=== PATIENT | female | born 1955 | race Caucasian/White ===

== ENCOUNTER → 2017-06-03 | Outpatient (CLI) | END | disposition home or self-care (01) | DX: M70.61 Trochanteric bursitis, right hip (principal); R10.30 Lower abdominal pain, unspecified; M16.11 Unilateral primary osteoarthritis, right hip; M16.0 Bilateral primary osteoarthritis of hip; I10 Essential (primary) hypertension; Z88.8 Allergy status to other drugs, medicaments and biological substances; Z87.891 Personal history of nicotine dependence | CPT/HCPCS: 20610; Z7500; Z7610 ==

== ENCOUNTER → 2018-02-11 | Outpatient (CLI) | END | disposition home or self-care (01) ==